=== PATIENT | male | born 1935 | race Caucasian/White ===

== ENCOUNTER → 2019-09-29 | Day surgery (SDC) | payer OTHER ==
[~2019-09-29] MED LIST: COUMADIN6 MG PO; DILTIAZEM ER120 MG PO; LEVOXYL75 MCG PO; PROSCAR5 MG PO; UROXATRAL10 MG PO
== END | disposition home or self-care (01) ==
LOC: ADM 09-21 07:15 → CIR.AMB 05:37
DX: K40.90 Unilateral inguinal hernia, without obstruction or gangrene, not specified as recurrent (principal)

== ENCOUNTER 2020-02-29 09:07 | Outpatient (CLI) | payer OTHER | END 2020-02-29 10:33 | disposition home or self-care (01) | LOC: LAB 09:07 | DX: I48.0 Paroxysmal atrial fibrillation (principal) ==